=== PATIENT | female | born 1950 | race Caucasian/White ===

== ENCOUNTER → 2018-01-25 | Outpatient (CLI) | payer OTHER ==
--- NOTE | 2018-01-25 10:04 | US ---
EXAMINATION TYPE: US kidneys/renal and bladder DATE OF EXAM: 01/25/2018 COMPARISON: NONE CLINICAL HISTORY: R31.9 Hematuria. EXAM MEASUREMENTS: Right Kidney: 10.7 x 4.9 x 5.1 cm Left Kidney: 11.0 x 5.3 x 5.3 cm Right Kidney: No hydronephrosis or masses seen Left Kidney: No hydronephrosis or masses seen Bladder: distended Bilateral Jets seen: yes There is no evidence for hydronephrosis at this point in time. No nephrolithiasis is seen. No philip s are identified. The urinary bladder is fairly anechoic. Bilateral ureteral jets are seen. IMPRESSION: No significant finding is seen to account for patient's symptoms. If symptoms persists further invest igation with CT urogram would be warranted.
== END | disposition home or self-care (01) ==
LOC: RADUSWWP 07:33
PROVIDERS: ATTEND Internal Medicine
DX: R31.29 Other microscopic hematuria (principal)
CPT/HCPCS: 76770

== ENCOUNTER 2023-02-08 09:17 | Day surgery (SDC) | payer MEDICARE ==
[2023-02-06 11:24] VITALS: BMI 29.2
[~2023-02-08 09:17] MED LIST: LACTATED RINGERS 1,000 ML IV SCH; MOXIFLOXACIN HCL 0.5% DROPS 3 ML BTL OP PRN; TETRACAINE 0.5% OPHTH (PF) DROPS 4 ML BTL OP PRN; TIMOLOL 0.5% OPHTH DROPS 5 ML BTL OP PRN
[2023-02-08] MEDS: CYCLOPENTOLATE 1% OPHTH SOLN 2 ML BTL OP PRN ×3 (10:56→11:11)
[2023-02-08] MEDS: PHENYLEPHRINE 2.5% OPHTH DRP 2ML OP PRN ×3 (10:59→11:14)
[2023-02-08] MEDS ORDERED: LIDOCAINE 1% (10MG/ML) FOR IV START INTRADERMA ONE (11:00)
[2023-02-08 11:04] VITALS: RESP 16; TEMP 98.4
[2023-02-08] MEDS ORDERED: fentaNYL (PF) 50 MCG/ML 2 ML AMP ONE (11:38)
[2023-02-08] MEDS ORDERED: MIDAZOLAM 2 MG/2 ML VIAL ONE (11:38)
[2023-02-08] MEDS ORDERED: EPINEPHrine (PF) 0.3 ML in BALANCED SALT IRRIG SOLN COMB2 500 ML IRRIGATION ONE (11:56)
[2023-02-08] MEDS ORDERED: BALANCED SALT IRRIG SOLN COMB2 15 ML IRRIG.SOLN INTRAOCULA ONE (11:57)
[2023-02-08] MEDS ORDERED: DUOVISC KIT (GREEN BOX) INTRAOCULA ONE (11:58)
[2023-02-08] MEDS ORDERED: LIDOCAINE 1% (PF) 10MG/ML VIAL MISCELLANE ONE (11:58)
[2023-02-08] MEDS ORDERED: TRYPAN BLUE 0.06% SYRINGE 0.5 ML SYRINGE INTRAOCULA ONE ×2 (11:59)
--- NOTE | 2023-02-08 12:21 | P.OP ---
Date of Procedure: 02/08/23 Preoperative Diagnosis: NS & POAG Postoperative Diagnosis: same Procedure(s) Performed: PIOL, & goniotomy OD Implants: [id number] Anesthesia: MAC Surgeon: Daniel Hyde Pathology: none sent Condition: stable Disposition: same day Indications for Procedure: blurry vision and better glaucoma control Operative Findings: no complications
[2023-02-08 12:48] VITALS: BP 139/78; PULSE 67
--- NOTE | 2023-02-08 18:49 | OP ---
OPERATIVE REPORT DATE OF SERVICE : 02/08/2023 PROCEDURE PERFORMED: Phacoemulsification of cataract and intraocular lens implant of the right eye with goniotomy. PREOPERATIVE DIAGNOSES: 1. Nuclear sclerosis. 2. Primary open-angle glaucoma, ixyk-ex-[id number] stage, right eye. POSTOPERATIVE DIAGNOSES: 1. Nuclear sclerosis. 2. Primary open-angle glaucoma, [id number] stage, right eye. ANESTHESIA: Topical. ESTIMATED BLOOD LOSS: None. SPECIMEN TAKEN: None. NARRATIVE: After obtaining the appropriate consent, the patient was brought to the operating room. There, she was placed under cardiac monitoring and prepped and draped in the usual sterile manner. She was approached from her right temporal side. And at the 11 o'clock position, an MVR blade was used to create a paracentesis port. Through this opening, 1% Xylocaine MPF 50:50 mix with balanced salt solution was injected into the anterior chamber. This was followed by Trypan blue, which was allowed to stay in the eye for about 90 seconds. This was irrigated away with balanced salt solution, and the anterior chamber was then stabilized with Viscoat. A small amount of the Viscoat medication was also placed on the patient's cornea. A 2.5 mm keratome was used to create a self-sealing corneal flap incision at the 9 o'clock position. The patient was then asked to rotate her head approximately 45 degrees to her left. A gonioprism was placed on the patient's eye, and the trabecular mesh was easily identified with the Trypan blue. Using an inside-out method, the [place] Dual Blade goniotomy knife was passed across the anterior chamber, and approximately 4 to 5 hours of trabecular meshwork were removed without difficulty. Some bleeding occurred at this site. Additional Viscoat was used to displace the blood to the side for continued visualization of the anterior chamber. The patient was then rotated to the normal supine position. A cystotome was introduced to begin a continuous tear capsulorrhexis, which was then completed using the Utrata forceps. Hydrodissection and hydrodelineation of the lens were accomplished with balanced salt solution. Phacoemulsification of the lens utilizing phaco chop was accomplished in 17.97 seconds at 15.7% power. Additional Xylocaine MPF was instilled into the anterior chamber. This was followed by removal of the remaining cortical material under irrigation and aspiration as well as careful polishing of the posterior capsule in the capsule vacuum mode. Provisc was then used to stabilize the capsular bag, and a [employer]ch [employer] Lomb MX60E 21.5 diopter posterior chamber intraocular lens was then inserted into the capsular bag without difficulty. The remaining viscoelastic was removed from in and around the intraocular lens as well as the anterior chamber. Both temporal and paracenteses incisions were hydrated with balanced salt solution, and the eye was brought to approximately 30 mmHg using balanced salt solution from the paracentesis port. She then received 2 drops of 5% moxifloxacin and 0.5% timolol. She was then lightly patched and shielded in the usual manner. There were no complications from the procedure. She tolerated the procedure well and was returned to outpatient recovery in good condition. OSITO / GEORGI: [id number] /
== END 2023-02-08 12:56 | disposition home or self-care (01) ==
LOC: OR 09:17
PROVIDERS: ATTEND Ophthalmology
DX: H25.11 Age-related nuclear cataract, right eye (principal); H40.1111 Primary open-angle glaucoma, right eye, mild stage; I10 Essential (primary) hypertension; E78.5 Hyperlipidemia, unspecified; F41.9 Anxiety disorder, unspecified; K21.9 Gastro-esophageal reflux disease without esophagitis; Z79.899 Other long term (current) drug therapy; Z90.710 Acquired absence of both cervix and uterus; Z98.890 Other specified postprocedural states
CPT/HCPCS: 66984; 65820; J2250; J0171; J3010; J2001

== ENCOUNTER 2023-03-15 13:32 | Day surgery (SDC) | payer MEDICARE ==
[2023-03-07 17:29] VITALS: BMI 30.1
[~2023-03-15 13:32] MED LIST changes: +LIDOCAINE 1% (10MG/ML) FOR IV START INTRADERMA PRN; -MOXIFLOXACIN HCL 0.5% DROPS 3 ML BTL OP PRN; -TIMOLOL 0.5% OPHTH DROPS 5 ML BTL OP PRN
[2023-03-15] MEDS: CYCLOPENTOLATE 1% OPHTH SOLN 2 ML BTL OP PRN ×3 (14:09→14:21)
[2023-03-15] MEDS: PHENYLEPHRINE 2.5% OPHTH DRP 2ML OP PRN ×3 (14:12→14:24)
[2023-03-15 14:44] VITALS: TEMP 971
[2023-03-15] MEDS ORDERED: fentaNYL (PF) 50 MCG/ML 2 ML AMP ONE (14:58)
[2023-03-15] MEDS ORDERED: MIDAZOLAM 2 MG/2 ML VIAL ONE (14:58)
[2023-03-15] MEDS: TIMOLOL 0.5% OPHTH DROPS 5 ML BTL OP PRN ×2 (15:05→15:23)
[2023-03-15] MEDS ORDERED: EPINEPHrine (PF) 0.3 ML in BALANCED SALT IRRIG SOLN COMB2 500 ML IRRIGATION ONE (15:05)
[2023-03-15] MEDS: MOXIFLOXACIN HCL 0.5% DROPS 3 ML BTL OP PRN ×2 (15:05→15:23)
[2023-03-15] MEDS ORDERED: DUOVISC KIT (GREEN BOX) INTRAOCULA ONE ×2 (15:05→15:23)
[2023-03-15] MEDS ORDERED: LIDOCAINE 1% (PF) 10MG/ML VIAL MISCELLANE ONE ×2 (15:07→15:23)
[2023-03-15] MEDS ORDERED: BALANCED SALT IRRIG SOLN COMB2 15 ML IRRIG.SOLN INTRAOCULA ONE (15:23)
[2023-03-15] MEDS ORDERED: TRYPAN BLUE 0.06% SYRINGE 0.5 ML SYRINGE MISCELLANE ONE (15:23)
--- NOTE | 2023-03-15 15:51 | P.OP ---
Date of Procedure: 03/15/23 Preoperative Diagnosis: 3+ NS& POAG mild Postoperative Diagnosis: same & synchioloysis Procedure(s) Performed: PIOL< & goniotomy OS & synchiolysis Implants: [id number] 21.0 Anesthesia: MAC Surgeon: Daniel Hyde Pathology: none sent Condition: stable Disposition: same day Indications for Procedure: blurry vision and better glaucoma control Operative Findings: no complications
[2023-03-15 16:15] VITALS: BP 150/82; PULSE 73; RESP 16
--- NOTE | 2023-03-16 07:53 | OP ---
OPERATIVE REPORT DATE OF SERVICE : 03/15/2023 PROCEDURES: Phacoemulsification of cataract and intraocular lens implant of the left eye with goniotomy. PREOPERATIVE DIAGNOSES: Nuclear sclerosis and primary open-angle glaucoma, moderate stage. 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 ANESTHESIA: Topical. ESTIMATED BLOOD LOSS: Less than 5 mL. SPECIMEN TAKEN: None. NARRATIVE: After obtaining the appropriate consent, the patient was brought to the operating room. There she was placed under cardiac monitoring, prepped and draped in the usual sterile manner. She was approached from her left temporal side and at the 5 o'clock position, a paracentesis was performed with an MVR blade. Through this opening, 1% Xylocaine MPF 50:50 mix with balanced salt solution was injected into the anterior chamber. This was followed by trypan blue which was instilled in the anterior chamber and washed out after 90 seconds. Viscoat was then used to stabilize the anterior chamber and the tip of the viscoelastic cannula was advanced across and used to disinsert the posterior synechiae which was identified at the 1 o'clock position. At this point, the pupil dilated more adequately and was round at the end of that procedure. At the 3 o'clock position, a 2.5 mm keratome was used to create a self-sealing corneal flap incision. The patient was then asked to rotate her head approximately 45 degrees to her right and maintain a general straight-ahead gaze in that particular direction. A gonioprism was then placed on the patient's eye and using a [place] and Meet method, a [place] goniotomy knife was advanced across the anterior chamber, removing approximately 4 clock hours of trabecular meshwork. There was some bleeding that ensued as would have normally been expected. The patient was then returned to the normal supine position. Additional Viscoat was used to displace some blood which had crossed the pupillary axis. This was then followed by insertion of a cystotome which began a continuous tear capsulorrhexis which was then otherwise completed with the Utrata forceps. Hydrodissection and hydrodelineation of the lens were accomplished with balanced salt solution. Phacoemulsification of the lens utilizing phaco chop was accomplished in 17.27 seconds at 13.3% power. Additional Xylocaine MPF was instilled into the patient's eye and the remaining cortical material was removed under irrigation and aspiration as well as careful polishing of the posterior capsule in capsule vacuum mode. Additional Provisc was then used to stabilize the capsular bag and a [employer]ch [employer] Lomb MX60E 21.0 diopter posterior chamber intraocular lens was then inserted into the capsular bag without difficulty. The remaining viscoelastic was then removed from in and around the intraocular lens. The lens had been spun a couple of times in order to help disinsert some of the more tenacious cortical material, which had been stuck in the equator at 12 and 3 o'clock positions. Once all remaining viscoelastic and cortical material were removed from the anterior chamber of the eye, the eye was then brought to slightly above normal intraocular pressure through the paracentesis port with balanced salt solution in an attempt to tamponade any additional bleeding, which may occur following closure of the eye. She then received 2 drops of 0.5% timolol followed by 2 drops of moxifloxacin, was then lightly patched and shielded in the usual manner. There were no complications from the procedure. She tolerated the procedure well and was returned to outpatient recovery in good condition. MMODL / IJN: [id number] /
== END 2023-03-15 16:24 | disposition home or self-care (01) ==
LOC: OR 13:32
PROVIDERS: ATTEND Ophthalmology
DX: H25.12 Age-related nuclear cataract, left eye (principal); I10 Essential (primary) hypertension; E78.5 Hyperlipidemia, unspecified; F41.9 Anxiety disorder, unspecified; Z79.899 Other long term (current) drug therapy
CPT/HCPCS: 65820; C1780; J2250; J0171; J3010; J2001